=== PATIENT | female | born 1980 | race Caucasian/White ===

== ENCOUNTER 2017-08-25 22:20 | Observation (INO) ==
[2017-08-25] MEDS ORDERED: Ringers Solution, Lactated 1,000 ML IVC ONE (23:01)
[2017-08-25 23:02] LABS: Bilirubin,Urine Negative (Negative); Blood,Urine Negative (Negative); Clarity,Urine Clear (Clear); Color,Urine Yellow (Yellow); Glucose,Urine (UA) Normal (Normal); Ketones,Urine Negative (Negative); Leukocyte Esterase,Urine Negative (Negative); Nitrite,Urine Negative (Negative); PH,Urine 6.5 pH Units (5.0-8.0); Protein,Urine 30 mg/dL (Neg-Trace); Specific Gravity,Urine 1.023 (1.010-1.025); Urobilinogen,Urine Normal (Normal)
[2017-08-25 23:05] LABS: Bacteria,Urine None Seen per hpf (None-Few); Hyaline Casts,Urine None Seen per lpf (None-Few); Squamous Epithelial Cell,Urine Many per lpf (None-Few); WBC,Urine 0-3 per hpf (0-3)
[2017-08-25 23:06] LABS: Amphetamine Screen,Urine Negative ng/mL (Cutoff=1000); Barbiturate Screen,Urine Negative ng/mL (Cutoff=200); Benzodiazepines Screen,Urine Negative ng/mL (Cutoff=200); Cannabinoid Screen,Urine Negative ng/mL (Cutoff = 50); Cocaine Screen,Urine Negative ng/mL (Cutoff= 300); Opiate Screen,Urine Negative ng/mL (Cutoff=300); Phencyclidine Screen,Urine Negative ng/mL (Cutoff=25)
[2017-08-25 23:23] LABS: Basophils % 0.3 %; Eosinophils # 0.1 K/mcL (0.0-0.6); Eosinophils % 0.6 %; Hematocrit 33.3 % (35.3-44.9); Hemoglobin 10.8 g/dL (11.5-15.4); Immature Granulocytes % 0.6 % (0-4); Lymphocytes # 2.6 K/mcL (0.6-4.6); Lymphocytes % 17.6 %; Mean Corpuscular HGB Conc 32.4 g/dL (31.6-35.5); Mean Corpuscular Hemoglobin 25.1 pg (28.0-33.3); Mean Corpuscular Volume 77.3 fL (83.0-100.0); Mean Platelet Volume 11.5 fL (9.4-12.4); Monocytes # 0.9 K/mcL (0.0-1.3); Monocytes % 6.3 %; Neutrophils # 10.9 K/mcL (1.6-8.9); Platelet Count 198 K/mcL (140-400); Red Blood Count 4.31 M/mcL (3.82-4.97); Red Cell Distribution Width 15.3 % (11.5-14.5); Segmented Neutrophils % 74.6 %
--- NOTE | 2017-08-26 00:01 | OB/GYN Progress Note ---
Date of Encounter: 08/25/17 Time of Encounter: 23:57 - Assessment and Plan (1) 33 weeks gestation of Current Visit: Yes Status: Acute admitted for observation (2) Advanced maternal age (AMA) in Current Visit: Yes Status: Acute (3) uterine contractions Current Visit: Yes Status: Acute IV hydration Patient declines tocolytics If cervical change is made will consider transfer to [facility] Subjective - Subjective Principal diagnosis: contractions Interval history: Patient is a 36 y/o at 33w1d presents to labor and delivery with complaints of contractions that started early this morning. Patient sees Dr. Flores for care and went to [facility] but did not like the staff and signed out AMA. SVE by RN on admission was 3cm. Patient reports she was breech yesterday. Discussed POC with patient. Patient refused Terbutaline for treatment. IV bolus infusing at this time. Antepartum ROS: movement normal, contractions, no loss of fluid, no vaginal bleeding Objective - Vital Signs Vital Signs: Intake and Output 08/25/17 08/25/17 08/25/17 07:59 15:59 23:59 Other: Weight 91.4 kg Patient Weight 08/25/17 23:59 Weight 91.4 kg - Exam FHR: auscultation normal FHR comments: 140 bpm moderate variability Auscultation: bilateral: normal Abdomen: Present: normal appearance, soft, gravid Cervical dilation: 3 Cervix effacement: 60 - Labs Labs: Abnormal lab results WBC 14.6 K/mcL (4.3-11.1) H 08/25/17 23:10 Hgb 10.8 g/dL (11.5-15.4) L 08/25/17 23:10 Hct 33.3 % (35.3-44.9) L 08/25/17 23:10 MCV 77.3 fL (83.0-100.0) L 08/25/17 23:10 MCH 25.1 pg (28.0-33.3) L 08/25/17 23:10 RDW 15.3 % (11.5-14.5) H 08/25/17 23:10 Neutrophils # 10.9 K/mcL (1.6-8.9) H 08/25/17 23:10 Urine Protein 30 mg/dL (Neg-Trace) H 08/25/17 22:56 Urine Microscopic RBC 5-15 per hpf (0-3) H 08/25/17 22:56 Ur Squamous Epith Cells Many per lpf (None-Few) H 08/25/17 22:56
== END 2017-08-26 01:32 | disposition home or self-care (01) ==
LOC: 1NENULAB
PROVIDERS: ADMIT Advanced Practice Midwife; ATTEND Advanced Practice Midwife